=== PATIENT | male | born 1995 | race American Indian/Alaskan Native ===

== ENCOUNTER 2017-06-29 07:53 | Outpatient (CLI) | payer BC ==
--- NOTE | 2017-06-29 16:39 | XRay Report ---
XRAY BILATERAL KNEE FOUR VIEWS EACH: 06/29/17 07:53:00 CLINICAL: Bilateral knee pain. FINDINGS: Right: The medial and lateral joint spaces are normal. No fracture or dislocation. Mild patellofemoral joint arthritis with small medial and inferior osteophytes. No joint effusion. Normal soft tissues. Left: The medial and lateral joint spaces are normal. No fracture or dislocation. The patella is relatively high on the lateral view but is otherwise normal. Very mild patellofemoral joint arthritis. No joint effusion.Normal soft tissues. IMPRESSION: Mild right patellofemoral joint osteoarthritis. Left patella krzysztof and very mild left patellofemoral joint osteoarthritis.
== END 2017-06-29 07:54 | disposition home or self-care (01) ==
LOC: SPVIMAG 07:53
PROVIDERS: ATTEND Orthopaedic Surgery
DX: M17.0 Bilateral primary osteoarthritis of knee (principal)